=== PATIENT | female | born 1945 | race Caucasian/White ===

== ENCOUNTER → 2018-10-10 | Outpatient (CLI) | payer MEDICARE, OTHER ==
--- NOTE | 2018-10-10 07:37 | US ---
EXAMINATION TYPE: US duplex aorta DATE OF EXAM: 10/10/2018 COMPARISON: NONE CLINICAL HISTORY: Z13.6 Screening for cardiovascular disorders. HTN controlled by diet per patient. EXAM MEASUREMENTS: Abdominal Aorta: Proximal: 2.6cm A/P Mid: 2.0cm A/P Distal: 1.8cm A/P Bifurcation: Right LATISHA = 1.2cm A/P; Left LATISHA = 1.2cm Transverse Upper abdominal aorta size is larger than upper limits of 2.5cm established by department protocol. IMPRESSION: Minimal ectasia of the upper abdominal aorta without aneurysmal dilatation of the visuali zed portions of the abdominal aorta or common iliac arteries.
== END ==
LOC: RADUSWWP 06:47
PROVIDERS: ATTEND Family Medicine
DX: I77.811 Abdominal aortic ectasia (principal); Z13.6 Encounter for screening for cardiovascular disorders
CPT/HCPCS: 93979

== ENCOUNTER 2025-04-09 01:37 | Emergency (ER) | payer OTHER ==
--- NOTE | 2025-04-09 04:01 | ED ---
Fall HPI - General Chief Complaint: Fall Stated Complaint: Fall Time Seen by Provider: 04/09/25 01:56 Source: patient Mode of arrival: ambulatory - History of Present Illness Initial Comments: 79-year-old female presenting with chief complaint of right-sided rib pain. She reports that on 04/06 she tripped on uneven onto her side. She denies any head injury, loss of consciousness, or use of blood thinners. She states that as a days of going on she has had an increased aching pain over her right ribs underneath her right breast. Worse with certain movements and deep breaths. She came in tonight at the advice of her children to make sure she does not have a rib fracture. She feels well at this time. No chest pain or difficulty breathing. No abdominal pain nausea or vomiting. - Related Data Allergies Allergy/AdvReac Type Severity Reaction Status Date / Time cephalexin [From Keflex] AdvReac Nausea & Verified 04/09/25 01:46 Vomiting codeine AdvReac Nausea & Verified 04/09/25 01:46 Vomiting Review of Systems ROS Statement: Those systems with pertinent positive or pertinent negative responses have been documented in the HPI. ROS Other: All systems not noted in ROS Statement are negative. Past Medical History Past Medical History: Hypertension History of Any Multi-Drug Resistant Organisms: None Reported Past Surgical History: Appendectomy, Hysterectomy Past Psychological History: No Psychological Hx Reported Smoking Status: Former smoker Past Alcohol Use History: Occasional Past Drug Use History: None Reported General Exam Limitations: no limitations General appearance: alert, in no apparent distress Head exam: Present: atraumatic, normocephalic, normal inspection Eye exam: Present: normal appearance, EOMI. Absent: periorbital swelling Neck exam: Present: normal inspection. Absent: meningismus Respiratory exam: Present: normal lung sounds bilaterally. Absent: respiratory distress, wheezes, rales, rhonchi, stridor, chest wall tenderness Cardiovascular Exam: Present: regular rate, normal rhythm, normal heart sounds. Absent: systolic murmur, diastolic murmur, rubs, gallop, clicks Neurological exam: Present: alert, oriented X3 Psychiatric exam: Present: normal affect, normal mood Skin exam: Present: warm, dry, normal color Course Vital Signs 04/09/25 04/09/25 01:46 04:08 Temperature 98.6 F 97.7 F Pulse Rate 60 61 Respiratory 18 16 Rate Blood Pressure 156/87 135/75 O2 Sat by Pulse 99 98 Oximetry Medical Decision Making - Medical Decision Making Was pt. sent in by a medical professional or institution ([facility], [facility], urgent care, hospital, or fpc...) When possible be specific @ -No Did you speak to anyone other than the patient for history (EMS, parent, family, police, friend...)? What history was obtained from this source @ -No Did you review nursing and triage notes (agree or disagree)? Why? @ -I reviewed and agree with nursing and triage notes Were old charts reviewed (outside hosp., previous admission, EMS record, old EKG, old radiological studies, urgent care reports/EKG's, fpc records)? Report findings @ -No old charts were reviewed Differential Diagnosis (chest pain, altered mental status, abdominal pain women, abdominal pain men, vaginal bleeding, weakness, fever, dyspnea, syncope, headache, dizziness, GI bleed, back pain, seizure, CVA, palpatations, mental health, musculoskeletal)? @ -Differential includes rib fracture, pneumothorax, hemothorax, not an all- inclusive list EKG interpreted by me (3pts min.). @ -As above X-rays interpreted by me (1pt min.). @ -Chest x-ray shows blunting of the costophrenic angles may represent pleural scarring or small pleural effusions. No rib fracture. CT interpreted by me (1pt min.). @ -None done U/S interpreted by me (1pt. min.). @ -None done What testing was considered but not performed or refused? (CT, X-rays, U/S, labs)? Why? @ -None What meds were considered but not given or refused? Why? @ -None Did you discuss the management of the patient with other professionals (professionals i.e. [facility], [facility], lab, RT, psych nurse, social problems specialist, can capper, teacher, promotions officer, field nurse case manager)? Give summary @ -No Was smoking cessation discussed for >3mins.? @ -No Was critical care preformed (if so, how long)? @ -No Were there social determinants of health that impacted care today? How? (Homelessness, low income, unemployed, alcoholism, drug addiction, transportation, low edu. Level, literacy, decrease access to med. care, senior care, rehab)? @ -No Was there de-escalation of care discussed even if they declined (Discuss DNR or withdrawal of care, Hospice)? DNR status @ -No What co-morbidities impacted this encounter? (DM, HTN, Smoking, COPD, CAD, Cancer, CVA, ARF, Chemo, Hep., AIDS, mental health diagnosis, sleep apnea, morbid obesity)? @ -None Was patient admitted / discharged? Hospital course, mention meds given and route, prescriptions, significant lab abnormalities, going to OR and other pertinent info. @ -79-year-old female presenting with chief complaint of right-sided rib pain this started after a fall a few days ago. History and physical examination are conducted. Heart and lungs are clear to auscultation. X-rays negative for fracture. Patient is educated on today's findings and supportive management at home. Provided with incentive spirometer for home. Follow-up with PCP. Report back to ER with any new or worsening symptoms. Discussed return parameters and answered all questions. Patient conveyed verbal understanding and agreed to the plan. I discussed this case in detail with my attending Dr. Weinstein Undiagnosed new problem with uncertain prognosis? @ -No Drug Therapy requiring intensive monitoring for toxicity (Heparin, Nitro, Insulin, Cardizem)? @ -No Were any procedures done? @ -No Diagnosis/symptom? @ -Rib contusion Acute, or Chronic, or Acute on Chronic? @ -Acute Uncomplicated (without systemic symptoms) or Complicated (systemic symptoms)? @ -Uncomplicated Side effects of treatment? @ -No Exacerbation, Progression, or Severe Exacerbation? @ -No Poses a threat to life or bodily function? How? (Chest pain, [place], [place], pneumonia, PE, COPD, DKA, ARF, appy, cholecystitis, CVA, Diverticulitis, Homicidal, Suicidal, threat to staff... and all critical care pts) @ -Unlikely Disposition Clinical Impression: Rib contusion Disposition: HOME SELF-CARE Condition: Good Instructions (If sedation given, give patient instructions): Rib Contusion (ED) Additional Instructions: Follow-up with PCP. Report back to ER with any new or worsening symptoms. Take Motrin Tylenol as needed for pain control. Use incentive spirometer, use 10 times every hour while awake. Is patient prescribed a controlled substance at d/c from ED?: No Referrals: Nedic,Oscar, MD [Primary Care Provider] - 1-2 days Time of Disposition: 04:01
[2025-04-09 04:23] VITALS: BP 135/75; PULSE 61; RESP 16; TEMP 97.7
--- NOTE | 2025-04-09 06:31 | XR ---
EXAM: XR Right Ribs, 2 Views CLINICAL HISTORY: Pain TECHNIQUE: Frontal and oblique views of the right ribs. COMPARISON: No relevant prior studies available. FINDINGS: Lungs: Emphysema. No consolidation. Pleural space: Blunting of the costophrenic angles may represent pleural scarring or small pleural effusions. No pneumothorax. Bones/joints: There are degenerative changes of the spine. No acute fracture. IMPRESSION: 1. Blunting of the costophrenic angles may represent pleural scarring or small pleural effusions. 2. No rib fracture.
== END 2025-04-09 04:08 | disposition home or self-care (01) ==
LOC: EC 01:37
DX: S20.219A Contusion of unspecified front wall of thorax, initial encounter (principal); Z87.891 Personal history of nicotine dependence; Z88.1 Allergy status to other antibiotic agents; Z88.5 Allergy status to narcotic agent; W01.0XXA Fall on same level from slipping, tripping and stumbling without subsequent striking against object, initial encounter
CPT/HCPCS: 99283